=== PATIENT | female | born 1990 | race Two or more races ===

== ENCOUNTER 2020-08-03 07:53 | Emergency (ER) | payer OTHER, MEDICAID ==
[~2020-08-03] VITALS: Ht 162.6 cm; Wt 80.9 kg
[2020-08-03 07:57] VITALS: BP 135/88
== END 2020-08-03 08:27 | disposition home or self-care (01) ==
LOC: EMS 07:53
DX: U07.1 COVID-19 (principal)
CPT/HCPCS: 99283; U0003